=== PATIENT | male | born 1990 | race Caucasian/White ===

== ENCOUNTER 2024-03-11 08:33 | Emergency (ER) | payer MEDICAID, SELFPAY ==
--- NOTE | ~2024-03-11 | CT_ITS ---
EXAMINATION: CT ABDOMEN PELVIS WITHOUT IV CONTRAST CLINICAL INFORMATION: left flank pain, hx of kidney stones COMPARISON: No prior CT available for comparison. TECHNIQUE: Multidetector volumetric imaging was performed from the superior aspect of the liver through the pubic symphysis , noncontrast study Sagittal and coronal reformatted images were obtained on the technologist's workstation. This CT examination was performed using dose optimization techniques as appropriate, variously including the following: *Automated exposure control *Adjustment of mA and/or kV according to patient size (this includes techniques or standardized protocols for targeted exams where dose is matched to indication/reason for exam; i.e. extremities or head) *Use of iterative reconstruction technique DLP: 674 mGy-cm FINDINGS: LOWER THORAX: Included lung bases are clear. HEPATOBILIARY: No focal hepatic lesions. No biliary ductal dilatation. GALLBLADDER: Gallbladder unremarkable. SPLEEN: Spleen is normal in size. PANCREAS: No focal mass or ductal dilatation. STOMACH AND GASTROINTESTINAL TRACT: Stomach is grossly unremarkable. There is no bowel distention or thickening. No CT evidence of appendicitis. ADRENALS: No adrenal nodules. KIDNEYS/URETERS: No hydronephrosis, stones or solid mass lesions. URINARY BLADDER: Partially decompressed. PELVIC VISCERA: Unremarkable PERITONEUM: No free air or fluid. LYMPH NODES: No lymphadenopathy. VASCULAR:Abdominal aorta normal in size, no aneurysm found. BONES, ABDOMINAL WALL AND SOFT TISSUES: Age-appropriate changes of the spine and skeletal system, no destructive osteolytic or osteosclerotic bone lesion found CT/CT abdomen pelvis wo IV con IMPRESSION: No CT evidence of kidney stone. No CT explanation for patient's pain symptoms. Electronically signed by: Meg Lopez MD 03/11/2024 12:07 PM EDT
[2024-03-11 08:50] VITALS: BP 123/83; PULSE 85; RESP 18; TEMP 36.6; O2SAT 98; BMI 30.7
[2024-03-11 09:08] LABS: Appearance Urine Clear; Color Urine Yellow; Glucose Urine UA Negative (Negative); Leukocyte Esterase Urine Negative (Negative); Nitrite Urine Negative (Negative); Specific Gravity - Urine <= 1.005 (1.005-1.025); Urine Blood Negative (Negative); Urine Ketones Negative (Negative); Urine Protein Negative (Neg-Trace)
[2024-03-11 09:10] LABS: Bacteria Urine None Seen (None Seen); Hyaline Casts Urine 0-2 /LPF (0-2); RBC Urine 0-2 /HPF (0-2); Squamous Epithelial Cell Urine 0-2 /HPF (0-2); WBC Urine 0-5 /HPF (0-5)
--- NOTE | 2024-03-11 09:21 | ED.MALEGU ---
HPI - Male Genitourinary General Chief complaint: Urogenital-Male Stated complaint: pain when urinating Time Seen by Provider: 03/11/24 09:20 Source: patient, RN notes reviewed and inspector floor Mode of arrival: ambulatory Limitations: no limitations and language barrier History of Present Illness ED Provider: Hedy Man PA-C HPI Narrative: This is a 33-year-old Faroese-speaking male who presents emergency department with complaints of burning with urination. Patient was seen in [place] 4 months ago and was told he either has a urinary tract infection or bacterial infection was prescribed antibiotics. Patient reports that his symptoms did improve until about 1 month ago. Patient states that he has had intermittent burning with urination as well as painful ejaculation. He denies any fevers, chills, chest pain, shortness of breath, urinary frequency, urgency. 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 Denies any known trauma or injury to his back. He denies the pain radiating into his flank. He does have a history of kidney stones. He is sexually active. He was tested for gonorrhea and chlamydia 4 months ago while he was in [place], states that they were negative. No urinary or bowel retention or incontinence. No testicular pain or testicular swelling. He denies any other complaints or concerns at this time. MD Complaint: dysuria Onset (ago): month(s) Duration: constant and intermittent Severity: mild Quality: burning Relieving factors: rest Exacerbating factors: urination Associated symptoms: Reports denies other symptoms Related Data Sexually active: Yes Previous Rx's ?Medication ?Instructions ?Recorded doxycycline hyclate 100 mg capsule 100 mg PO BID 7 days #13 caps 03/11/24 phenazopyridine 100 mg tablet 100 mg PO TID PRN pain 6 doses #6 03/11/24 (Pyridium) tabs Allergies Allergy/AdvReac Type Severity Reaction Status Date / Time No Known Allergies Allergy Verified 03/11/24 08:50 Review of Systems Review of Systems: Yes all other systems are reviewed and are negative Constitutional: Constitutional: Reports as per [facility] Past Medical History Attestation statement: The following information was validated with the patient. Social History Social History Advance Directives: No Physical Exam Vital Signs: Vital Signs: Last Vital Signs Temp 97.8 F 03/11/24 08:50 Pulse 85 03/11/24 08:50 Resp 18 03/11/24 08:50 BP 123/83 03/11/24 08:50 Pulse Ox 98 03/11/24 08:50 O2 Del Method Room Air 03/11/24 08:50 BMI result Body Mass Index 30.7 Const: General: cooperative, comfortable and no acute distress Orientation/consciousness: patient oriented x3 Limitations: no limitations HEENT: Head: Yes normal to inspection, Yes normocephalic and Yes atraumatic Ears: hearing grossly normal bilaterally General nose exam: Normal external nose present Face and sinus: Yes normal facial exam Mouth: Normal oral and palatal mucosa present, oropharynx normal and moist mucous membranes Throat: Yes posterior oropharynx normal Eyes: General: appearance normal, both eyes and all related structures Eyelids: Yes eyelids normal Conjunctivae: conjunctivae normal Sclerae: sclerae normal Pupils: Equal, round and reactive pupils present EOM: EOMs intact bilaterally Neck: Neck: Yes normal visual inspection, Yes full ROM and Yes no lymphadenopathy Lymphatic: no lymphadenopathy noted Chest: Chest palpation & inspection: normal inspection of the chest Resp: Effort & Inspection: normal respiratory effort and able to speak in complete sentences Auscultation: clear to auscultation bilaterally, no crackles, no rales, no rhonchi and no wheezes Cardio: Rate: regular rate Rhythm: regular rhythm Heart sounds: S1 normal heart sound present and S2 normal heart sound present GI: Other: Abdomen is soft, nontender, nondistended Inspection: Yes normal to inspection Back/Spine/Pelvis: Other: Patient has left-sided CVA tenderness, however also reporting some bilateral lumbar paraspinous muscle tenderness with spasms noted. Skin: General skin exam: no rashes or lesions noted Trauma: no lacerations or abrasions Wounds: no wounds Neuro: General: patient oriented x3 and moves all extremities Cranial nerves: Yes Equal, round and reactive pupils present Extrem: General: Yes normal to inspection Right upper extremity: normal to inspection Left upper extremity: normal to inspection Right lower extremity: normal to inspection Left lower extremity: normal to inspection Course Reevaluation(s) Reevaluation #1: Labs returned, patient has no leukocytosis, H&H is stable. No evidence of MIGUEL. Urine does not appear to be infected. Chlamydia and gonorrhea testing pending. Patient requesting treatment for STIs at this time, he was given ceftriaxone and discharged on doxycycline. Also trial Pyridium. Also given urology follow-up. Given strict return precautions. Patient understands and agrees with plan. Patient stable for discharge. Time: 12:56 Medications Administered Discontinued Medications Generic Name Dose Route Start Last Admin Trade Name Tian PRN Reason Stop Dose Admin Ceftriaxone Sodium 500 mg/ 0 mg 03/11/24 12:37 03/11/24 12:46 Lidocaine HCl 1 ml IM 03/11/24 12:38 1 kit ONCE ONE Administration Doxycycline Monohydrate 100 mg 03/11/24 12:38 03/11/24 12:46 Doxycycline Monohydrate 100 Mg Capsule PO 03/11/24 12:39 100 mg ONCE ONE Administration Medical Decision Making Medical Decision Making [facility] [place] Narrative: This is a 33-year-old male, with a history of kidney stones, who presents emergency department with complaints of dysuria, and back pain. Patient was seen in [place] 4 months ago for similar symptoms, reported that he had a ?infection?. He states that he was tested for STIs which were negative. Patient also reporting some painful ejaculation. He was never seen by urologist. He recently relocated to this area and has not established primary care. On arrival, patient nontoxic appearing, speaking in full sentences under no acute distress. Vital signs within normal limits. Abdomen is soft and nontender. He does have left-sided CVA tenderness as well as bilateral lumbar paraspinous muscle tenderness with spasms noted. Differential diagnoses include pyelonephritis, obstructive uropathy, lumbar strain, urethritis, STI. Plan: Labs, UA, CT NG, abdomen and pelvis CT to rule out obstructive pathology. Differential Diagnosis Differential Diagnoses: The differential diagnosis associated with the presentation includes See above Lab Data [facility] [place] Lab Attestation statement: I reviewed the patient's lab results. See course comment 03/11/24 10:18 03/11/24 10:18 Labs: Lab Results 03/11/24 03/11/24 Range/Units 09:00 10:18 WBC 6.4 (4.8-10.8) X10*3/uL RBC 5.43 (4.60-5.80) X10*6/uL Hgb 16.9 (14.0-18.0) g/dl Hct 48.6 (42.0-52.0) % MCV 89.5 (80.0-98.0) fL MCH 31.1 (27.0-33.0) pg MCHC 34.8 (31.0-36.0) g/dl RDW 12.1 (11.0-16.0) % Plt Count 219 (160-400) X10*3/uL MPV 10.1 (9.4-12.4) fL Immature Gran % (Auto) 0.2 (0.0-0.4) % Neut % (Auto) 52.8 (45-73) % Lymph % (Auto) 37.7 (20-40) % [place] % (Auto) 6.9 (2-11) % Eos % (Auto) 1.9 (0-4) % Baso % (Auto) 0.5 (0-2) % Lymph # (Auto) 2.4 (1.2-4.9) X10*3/uL [place] # (Auto) 0.4 (0.1-1.2) X10*3/uL Eos # (Auto) 0.1 (0.0-0.4) X10*3/uL Baso # (Auto) 0.0 (0.0-0.2) X10*3/uL Abs Immat Gran (auto) 0.01 (0.00-0.03) X10*3/uL Absolute Neuts (auto) 3.4 (2.0-8.3) x10*3/uL Absolute Nucleated RBC 0.000 (0.0-0.012) X10*3/uL Nucleated RBC % (auto) 0.0 (0.0-0.2) /100WBC Sodium 138 (135-145) mmol/L Potassium 4.9 (3.3-5.1) mmol/L Chloride 104 (96-108) mmol/L Carbon Dioxide 27 (22-29) mmol/L Anion Gap 12 (12-20) BUN 17 H (9-16) mg/dL Creatinine 0.98 (0.5-1.4) mg/dL Estim Creat Clear Calc 120.3 Estimated GFR > 60 Random Glucose 94 (60-115) mg/dL Calcium 10.1 (8.4-10.2) mg/dL Total Bilirubin 0.5 (0.0-1.0) mg/dL Direct Bilirubin 0.2 (0.0-0.5) mg/dL AST 32 (5-37) U/L ALT 37 (0-40) U/L Alkaline Phosphatase 61 (39-117) U/L Total Protein 8.3 H (6.5-8.0) g/dL Albumin 4.9 (3.5-5.0) g/dL Urine Color Yellow Urine Appearance Clear Urine pH 6.0 (5.0-9.0) Ur Specific [place] <= 1.005 (1.005-1.025) Urine Protein Negative (Neg-Trace) mg/dL Urine Glucose (UA) Negative (Negative) mg/dL Urine Ketones Negative (Negative) mg/dL Urine Blood Negative (Negative) Urine Nitrite Negative (Negative) Ur Leukocyte Esterase Negative (Negative) Urine RBC 0-2 (0-2) /HPF Urine WBC 0-5 (0-5) /HPF Ur Squamous Epith Cells 0-2 (0-2) /HPF Urine Bacteria None Seen (None Seen) Hyaline Casts 0-2 (0-2) /LPF Radiology Impression Discussion of test interpretation with radiology: I have reviewed the radiologist's reading. Radiologist Impression: CT/CT abdomen pelvis wo IV con IMPRESSION: No CT evidence of kidney stone. No CT explanation for patient's pain symptoms. Electronically signed by: Meg Lopez MD 03/11/2024 12:07 PM EDT Dictated By: Meg Lopez MD Independent Historian Clinical information obtained from an independent historian. History obtained from or confirmed by: Friend Discharge Plan Discharge Clinical Impression: Dysuria Patient Disposition: Home, Self-Care Instructions: Dysuria (ED) Additional Instructions: You were seen in the emergency department due to painful urination. Your urine does not appear to be infected. You are being treated for sexually transmitted infections. Pyridium is an analgesic for painful urination, please be advised that this will cause your urine to be bright orange. Your chlamydia and gonorrhea testing are still pending at this time, we will call you if they are positive. Please take prescribed antibiotic as directed, finish the entire course even if your symptoms improve. Your CT scan did not show any reason to suggest your symptoms. You may follow-up with urologist, call to make an appointment. You should also follow-up with the primary care physician, [facility] can help facilitate with that. If any new or worsening symptoms occur including but not limited to inability to urinate, fevers, chills, worsening pain, please return for re-evaluation. Prescriptions: New doxycycline hyclate 100 mg capsule 100 mg PO BID 7 Days Qty: 13 0RF phenazopyridine [Pyridium] 100 mg tablet 100 mg PO TID PRN (Reason: pain) Qty: 6 0RF Referrals: [facility] [Provider Group] [facility] [Physician] - Stand Alone Forms: Work/School Release Print Language: Faroese
[2024-03-11 10:22] LABS: MANUAL DIFF FLAG NO
[2024-03-11 10:26] LABS: Basophils Percent Auto 0.5 % (0-2); Eosinophils Absolute Auto 0.1 X10*3/uL (0.0-0.4); Eosinophils Percent Auto 1.9 % (0-4); Hematocrit 48.6 % (42.0-52.0); Hemoglobin 16.9 g/dl (14.0-18.0); Imm Gran Abs Auto 0.01 X10*3/uL (0.00-0.03); Imm Gran Pct Auto 0.2 % (0.0-0.4); Lymphocytes Absolute Auto 2.4 X10*3/uL (1.2-4.9); Lymphocytes Percent Auto 37.7 % (20-40); Mean Corpuscular HGB Conc 34.8 g/dl (31.0-36.0); Mean Corpuscular Hemoglobin 31.1 pg (27.0-33.0); Mean Corpuscular Volume 89.5 fL (80.0-98.0); Mean Platelet Volume 10.1 fL (9.4-12.4); Monocytes Absolute Auto 0.4 X10*3/uL (0.1-1.2); Monocytes Percent Auto 6.9 % (2-11); Neutrophils Absolute Auto 3.4 x10*3/uL (2.0-8.3); Neutrophils Percent Auto 52.8 % (45-73); Platelet Count 219 X10*3/uL (160-400); Red Blood Count 5.43 X10*6/uL (4.60-5.80); Red Cell Distribution Width 12.1 % (11.0-16.0); White Blood Count 6.4 X10*3/uL (4.8-10.8)
[2024-03-11 10:53] LABS: Alanine Aminotransferase 37 U/L (0-40); Albumin Level 4.9 g/dL (3.5-5.0); Alkaline Phosphatase 61 U/L (39-117); Anion Gap 12 (12-20); Aspartate Amino Transferase 32 U/L (5-37); Bilirubin Direct 0.2 mg/dL (0.0-0.5); Bilirubin Total 0.5 mg/dL (0.0-1.0); Blood Urea Nitrogen 17 mg/dL (9-16); Calcium 10.1 mg/dL (8.4-10.2); Carbon Dioxide 27 mmol/L (22-29); Chloride 104 mmol/L (96-108); Creatinine Clr Calc Pharmacy 120.3; Estimated Glomerular Filt Rate > 60; Glucose Random 94 mg/dL (60-115); Potassium 4.9 mmol/L (3.3-5.1); Sodium 138 mmol/L (135-145); Total Protein 8.3 g/dL (6.5-8.0)
[2024-03-11] MEDS: Doxycycline Monohydrate 100 MG CAPSULE PO (12:46)
[2024-03-11] MEDS: cefTRIAXone sodium 500 MG, Lidocaine HCl 1 % MPF 1 ML IM (12:46)
[2024-03-11 13:01] VITALS: BP 118/74; PULSE 78; RESP 18; TEMP 36.6; O2SAT 98
[2024-03-11 13:03] VITALS: BP 118/74; PULSE 78; RESP 18; TEMP 36.6; O2SAT 98
[2024-03-11 13:07] LABS: CT PCR NOT DETECTED (Not Detect.); NG PCR NOT DETECTED (Not Detect.)
== END 2024-03-11 13:04 | disposition home or self-care (01) ==
PROVIDERS: Physician Assistant Medical; Emergency Provider Emergency Medicine
DX: R30.0 Dysuria (principal); M54.9 Dorsalgia, unspecified; Z87.442 Personal history of urinary calculi
CPT/HCPCS: 36415; 74176; 80048; 80076; 81001; 85025; 87491; 87591; 96372; 99284; J0696